=== PATIENT | female | born 1945 | race Caucasian/White ===

== ENCOUNTER → 2016-08-07 | Outpatient (CLI) | payer MEDICARE ==
--- NOTE | 2016-08-07 22:11 | US ---
EXAMINATION TYPE: US MSK right shoulder complete DATE OF EXAM: 08/07/2016 9:51 AM COMPARISON: None available CLINICAL HISTORY: 71-year-old female M75.101 R rotator cuff tear. Intermittent pain, long standing, worse in the last 6 months. Fall downs stairs in 2015, now more painful. Unable to sleep on shou lder. 3 injections, last 2 months ago, no relief. PT one year ago, no relief. Right pacemaker. Technique: Multiple sonographic images of the right shoulder are obtained. FINDINGS: There is mild tenosynovial fluid seen along the long head biceps tendon sheath. In addition, the intr acapsular portion of the long head biceps tendon is irregular and appears partially torn. The insertional fibers of the subscapularis tendon are hypoechoic and tendinopathy. The majority of t he subscapularis tendon remains intact. Mild degenerative joint space narrowing with marginal spurring at the acromioclavicular joint. The supraspinatus tendon is diffusely thickened and heterogeneous. However, just posterior to the torie g head biceps tendon, the articular sided fibers are hypoechoic and irregular. Cartilage interface si gn is present and findings suggest an articular sided tear of the anterior to mid supraspinatus tendo n. Some images suggest that the tear extends to involve just over 50% of the tendon thickness. No ful l-thickness tear is identified. The infraspinatus tendon also appears thickened and tendinotic but without discrete tear. No significant volume loss of the supraspinatus or infraspinatus muscle bellies with minimal fatty st reaks noted. No fluid distention of the subacromial/subdeltoid bursa. The posterior labrum appears degenerative and blunted. No significant effusion within the posterior r ecess of the glenohumeral joint. IMPRESSION: 1. Diffuse rotator cuff tendinosis. Findings suggest an articular sided tear of the anterior to mid s upraspinatus tendon which extends to involve just over 50% of the tendon thickness on some images, po ssible rim rent tear. No full thickness tear is seen. 2. Partial tear of the intracapsular long head biceps tendon with mild tenosynovitis. 3. Mild AC joint osteoarthrosis.
== END ==
LOC: RADUSMAIN 08:54
PROVIDERS: ATTEND Orthopaedic Surgery
DX: M75.81 Other shoulder lesions, right shoulder (principal); M65.811 Other synovitis and tenosynovitis, right shoulder; M19.011 Primary osteoarthritis, right shoulder